=== PATIENT | female | born 1975 | race Caucasian/White ===

== ENCOUNTER 2021-06-20 01:46 | Emergency (ER) | payer SELFPAY ==
[2021-06-20] VITALS (24 sets, daily range): BP systolic 116–147; BP diastolic 79–105; PULSE 81–99; RESP 17–20; TEMP 36.5–36.6; O2SAT 97–100
--- NOTE | ~2021-06-20 | US_ITS ---
EXAMINATION: US OB <=14 wk fetus w TV DATE: 06/20/2021 04:34 INDICATION: Vaginal bleeding. Pelvic pain. TECHNIQUE: Real-time transabdominal and transvaginal pelvic ultrasound was performed. COMPARISON: CT abdomen and pelvis 12/14/2016 FINDINGS: TRANSABDOMINAL ULTRASOUND: The uterus measures 12.1 x 5.3 x 5.1 cm. TRANSVAGINAL ULTRASOUND: There is no visible intrauterine gestational sac. The endometrial complex me asures 2.0 cm in thickness. The right ovary measures 2.8 x 1.7 x 2.3 cm. The left ovary measures 3.7 x 2.6 x 2.8 cm. There is a 5.2 x 6.1 x 4.7 cm mass posterior to the uterus. There is no free fluid in the pelvis. IMPRESSION: 1. No visible intrauterine gestational sac, which may be normal in early . Ectopic pregnanc y and spontaneous are not excluded. Serial beta-hCGs are recommended. 2. 6.1 m mass posterior to the uterus. The differential diagnosis includes pedunculated fibroid, stoo l in the colon, and neoplasm. Consider pelvis MRI without contrast. Reviewed, dictated and finalized at location B. RITY INVESTIGATOR IMPRESSION: 1. No visible intrauterine gestational sac, which may be normal in early pregn alex. Ectopic and spontaneous are not excluded. Serial beta- hCGs are recommended. 2. 6.1 m mass posterior to the uterus. The differential diagnosis includes pedu nculated fibroid, stool in the colon, and neoplasm. Consider pelvis MRI without contrast.
--- NOTE | 2021-06-20 01:59 | PC.NURSE ---
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
[2021-06-20 02:34] LABS: Add Urine Microscopic? YES; Appearance Urine Cloudy (Clear); Bacteria Urine 2+ /hpf; Bilirubin Urine Negative (Negative); Blood Urine 3+ (Negative); Color Urine Yellow (Yellow); Glucose Urine UA Negative (Negative); Ketones Urine Negative (Negative); Leukocyte Esterase Ur 1+ LEU/UL (Negative); Mucus Urine Few /lpf; Nitrate Urine Positive (Negative); Protein Urine Negative (Negative); RBC Urine >75 /hpf (0-2); Specific Grav Ur 1.015 (1.001-1.035); Squamous Epithelial Cell Urine Few /hpf (Few); Urobilinogen Urine Negative mg/dL (<2.0); WBC Urine 21-30 /hpf
[2021-06-20 02:37] LABS: Basophils Absolute Auto 0.1 K/mm3 (0.0-0.1); Basophils Percent Auto 0.7 % (0.2-1.2); Eosinophils Absolute Auto 0.8 K/mm3 (0-0.3); Eosinophils Percent Auto 9.1 % (0-4.4); Hemoglobin 8.5 g/dL (12.0-15.0); Immature Granulocyte Absolute 0.01 K/mm3 (0.00-0.031); Immature Granulocyte Percent A 0.1 % (0-0.5); Lymphocytes Absolute Auto 1.76 K/mm3 (0.9-3.2); Lymphocytes Percent Auto 21.2 % (18.3-44.2); Mean Corpuscular HGB Conc 29.3 g/dl (32-36); Mean Corpuscular Hemoglobin 21.9 pg (26-34); Mean Corpuscular Volume 74.6 fl (80-100); Monocytes Absolute Auto 0.6 K/mm3 (0.1-0.6); Monocytes Percent Auto 6.7 % (2.6-8.5); Neutrophils Absolute Auto 5.2 K/mm3 (1.3-6.7); Neutrophils Percent Auto 62.2 % (45.5-73.1); Platelet Count Result 572 k/mm3 (150-375); Red Blood Count 3.89 M/mm3 (4.2-5.4); Red Cell Distribution Width 16.8 % (11.5-14.5); White Blood Count 8.3 K/mm3 (4.5-10.0)
[2021-06-20] MEDS: MORPHINE SULFATE (*CRX) 4 MG/ML INJ IV PUSH ×2 (02:46→03:39)
[2021-06-20 02:47] LABS: Anion Gap 3 mmol/L (8-16); Blood Urea Nitrogen 15 mg/dL (7-17); Calcium 9.1 mg/dL (8.4-10.2); Carbon Dioxide 23 mmol/L (22-30); Chloride 106 mmol/L (98-107); Estimated CRCL calculation 76 ml/min; Estimated Glomerular Filt Rate > 60; Glucose 98 mg/dL (65-110); Potassium 3.9 mmol/L (3.4-5.0); Sodium 132 mmol/L (137-145)
[2021-06-20 02:59] LABS: Hypochromasia 2+ (NORMAL); Platelet Estimate Increased (Adequate)
[2021-06-20 03:00] LABS: Stomatocytes 1+ (NORMAL)
[2021-06-20 03:10] LABS: Beta HCG Quantitative 20.28 mIU/ML
--- NOTE | 2021-06-20 04:06 | PC.NURSE ---
Patient taken to US via w/c.
--- NOTE | 2021-06-20 06:02 | ED.FEMALEGU ---
HPI - Female Genitourinary General Chief complaint: Vaginal Bleeding Stated complaint: vaginal bleed/hemorrhage - pass large clots-pd Time Seen by Provider: 06/20/21 01:52 History of Present Illness HPI Narrative: Patient is a 45-year-old female who presents ER with vaginal bleeding. She reports has been intermittent over the last 6 months however today while being in custody with [facility] she developed sudden gushing of blood from her vagina. Associate with lower abdominal cramping and pain. She denies any vaginal discharge. No urinary frequency urgency or dysuria. She is unsure if she has retained foreign body within her vagina but does not think she is placed anything in her recently. She reports that she is sexually active but has not been diagnosed as being . Related Data Home Medications Medication Instructions Recorded Confirmed No Home Medications 06/20/21 Allergies Allergy/AdvReac Type Severity Reaction Status Date / Time No Known Allergies Allergy Verified 06/20/21 02:05 Review of Systems Review of Systems: All systems reviewed & are unremarkable except as noted in HPI and below Constitutional: Constitutional: Denies chills and Denies fatigue ENT: Denies nasal congestion and Denies sore throat Cardiovascular: Cardiovascular: Denies chest pain, Denies rapid heart rate and Denies radiating jaw, neck or arm pain Respiratory: Respiratory: Denies cough and Denies dyspnea Gastrointestinal: Gastrointestinal: Reports abdominal pain, Denies nausea and Denies vomiting Genitourinary: Genitourinary: Reports abnormal vaginal bleeding, Denies dysuria, Denies flank pain and Denies vaginal discharge PMFSH Past Medical History Medical History (Updated 06/20/21 @ 07:54 by Nikunj Hidalgo MD) Depression Surgical History Surgical History (Updated 06/20/21 @ 06:05 by Nikunj Hidalgo MD) History of elective History of nasal surgery Social History Social History (Updated 06/20/21 @ 06:05 by Nikunj Hidalgo MD) Smoking status: Current every day smoker Exam Narrative: GENERAL: Uncomfortable-appearing, well-nourished, and in no acute distress. HEAD: Normocephalic, atraumatic. ENT: Mucous membranes moist. CHEST: Clear to auscultation. No respiratory distress. HEART: Regular rate and rhythm. Normal peripheral pulses. ABDOMEN: Soft, tender palpation lower abdomen bilateral lower quadrants more pelvic region than abdomen, nondistended, normal active bowel sounds. : Normal feeling external genitalia. Speculum exam with abnormal appearance to the cervix which is friable and there is some bleeding from the os. Bimanual exam reveals a irregular and large cervix. No discharge. EXTREMITIES: Normal range of motion. No edema. SKIN: Warm, dry, no rash. NEURO: Alert and oriented x3. PSYCH: Normal mood and affect. Course Course Emergency Course: Patient informed of results. Discussed case with Dr. Chaney. She suspects patient is not and that she may have an abnormal beta-hCG related to a cancerous process given the ultrasound. She would like patient follow-up in her clinic. We will add on an AFP, CA-125, and CEA test for further evaluation. Patient is well aware that she may have malignancy and I have stressed the importance of follow-up. Vital Signs Vital signs: Vital Signs Temperature 97.8 F 06/20/21 01:49 Pulse Rate 94 06/20/21 01:49 Respiratory Rate 18 06/20/21 01:49 Blood Pressure 147/105 H 06/20/21 01:49 Pulse Oximetry 100 06/20/21 01:49 Temperature 97.7 F 06/20/21 06:31 Pulse Rate 81 06/20/21 06:31 Respiratory Rate 17 06/20/21 06:31 Blood Pressure 125/86 06/20/21 06:30 Pulse Oximetry 99 06/20/21 06:31 MDM - Female Genitourinary Lab Data Result diagrams: 06/20/21 02:29 06/20/21 02:29 Labs: Lab Results 06/20/21 06/20/21 06/20/21 Range/Units 02:12 02:29 02:29 WBC 8.3 (4.5-10
== END 2021-06-20 08:41 | disposition home or self-care (01) ==
PROVIDERS: Emergency Provider Emergency Medicine
DX: N88.8 Other specified noninflammatory disorders of cervix uteri (principal); F17.200 Nicotine dependence, unspecified, uncomplicated
CPT/HCPCS: 36415; 76801; 76817; 80048; 81001; 81025; 84702; 85025; 86850; 86900; 86901; 87077; 87086; 87088; 87186; 96374; 96376; 99284; J2270

== ENCOUNTER 2022-02-27 09:01 | Emergency (ER) | payer SELFPAY ==
[2022-02-27 09:12] VITALS: BP 158/112; PULSE 109; RESP 18; TEMP 36.5; O2SAT 100
--- NOTE | 2022-02-27 09:37 | ED.GENADULT ---
HPI - General Adult General Chief complaint: Abdominal Pain Stated complaint: abd pain, painful urination Time Seen by Provider: 02/27/22 09:02 Source: RN notes reviewed History of Present Illness HPI narrative: Patient presents emergency department from home for abdominal pain. Patient states pain began approximately 3 days ago pain is located bilateral lower quadrant does not radiate described as sharp and stabbing it is associated with dysuria as well as nausea and vomiting. Patient denies any fevers or chills chest pain shortness of breath or diarrhea patient states she has been taking Tylenol ibuprofen at home with minimal relief Related Data Home Medications Medication Instructions Recorded Confirmed No Home Medications 06/20/21 Allergies Allergy/AdvReac Type Severity Reaction Status Date / Time No Known Allergies Allergy Verified 06/20/21 02:05 Review of Systems Review of Systems: Gen.: Denies fevers or chills ENT: Denies congestion Respiratory: Denies shortness of breath or cough CV: Denies chest pain or palpitations GI: See HPI see HPI Musculoskeletal: Denies back pain or muscle pain Neuro: Denies numbness, tingling, weakness or focal weakness Skin: Denies rash Except as documented, all other systems reviewed and negative [facility] Past Medical History Medical History Depression Surgical History Surgical History (Updated 06/20/21 @ 06:05 by Nikunj Hidalgo MD) History of elective History of nasal surgery Social History Social History Smoking status: Current every day smoker Exam Narrative: APPEARANCE: No acute distress, nontoxic, resting in bed HEENT: Normocephalic, atraumatic, OMM RESPIRATORY: No respiratory distress, clear to auscultation bilaterally with no rhonchi wheezing or rales CARDIOVASCULAR: RRR s murmur ABDOMINAL: Soft nondistended tender palpation right lower quadrant and left lower quadrant no tenderness right upper quadrant left upper quadrant no rebound or guarding MUSCULOSKELETAl: Moves all extremities. No clubbing, cyanosis or edema. NEURO: Awake and alert. Following commands, speech normal, no focal deficits SKIN:: Warm, dry. Normal Color PSYCHIATRIC: Normal affect/mood Course Course Emergency Course: Reviewed patient's old records the patient has a history of being seen in May 2021. At that time she is found to have a pelvic mass was thought to be possibly cervical cancer her beta-hCG was elevated at that time as well and PUNCH OPERATOR had felt that this was likely related to her cancer she had been referred at that time Per nursing staff they want to start the IV on the patient patient became upset with IV placement and eloped from the facility I was unable to see the patient before she eloped with the patient having a UTI and with her previous history I attempted to call the patient and called the number that was on the patient's records and that phone number has been discontinued. This time no other way to contact the patient Vital Signs Vital signs: Vital Signs Temperature 97.7 F 02/27/22 09:12 Pulse Rate 109 H 02/27/22 09:12 Respiratory Rate 18 02/27/22 09:12 Blood Pressure 158/112 H 02/27/22 09:12 Pulse Oximetry 100 02/27/22 09:12 Temperature 97.7 F 02/27/22 09:12 Pulse Rate 109 H 02/27/22 09:12 Respiratory Rate 18 02/27/22 09:12 Blood Pressure 158/112 H 02/27/22 09:12 Pulse Oximetry 100 02/27/22 09:12 Medical Decision Making Vital Signs Vital Signs: Vital Signs Temperature 97.7 F 02/27/22 09:12 Pulse Rate 109 H 02/27/22 09:12 Respiratory Rate 18 02/27/22 09:12 Blood Pressure 158/112 H 02/27/22 09:12 Pulse Oximetry 100 02/27/22 09:12 Temperature 97.7 F 02/27/22 09:12 Pulse Rate 109 H 02/27/22 09:12 Respiratory Rate 18 02/27/22 09:12 Blood Pressure 158/112 H
[2022-02-27 10:16] LABS: Alanine Aminotransferase 13 U/L (6-35); Albumin Level 3.8 g/dL (3.5-5.1); Alkaline Phosphatase 135 U/L (38-126); Anion Gap 16 mmol/L (8-16); Aspartate Amino Transferase 18 U/L (14-36); Bilirubin,Total 0.1 mg/dL (0.2-1.3); Blood Urea Nitrogen 17 mg/dL (7-17); Calcium 9.4 mg/dL (8.4-10.2); Carbon Dioxide 25 mmol/L (22-30); Chloride 99 mmol/L (98-107); Estimated Glomerular Filt Rate 48; Glucose 92 mg/dL (65-110); Lipase 172 U/L (23-300); Potassium 4.2 mmol/L (3.4-5.0); Sodium 140 mmol/L (137-145)
[2022-02-27 10:21] LABS: Appearance Urine Cloudy (Clear); Bilirubin Urine Negative (Negative); Blood Urine 2+ (Negative); Color Urine Yellow (Yellow); Glucose Urine UA Negative (Negative); Ketones Urine Negative (Negative); Leukocyte Esterase Ur 3+ LEU/UL (Negative); Nitrate Urine Positive (Negative); Protein Urine 3+ mg/dL (Negative); Specific Grav Ur 1.025 (1.001-1.035); Urobilinogen Urine 0.2 mg/dL (<2.0)
--- NOTE | 2022-02-27 10:30 | PC.NURSE ---
Pt screaming at this rn I dont want to fucking be here, I got woke up out of a sleep. I am in fucking pain and i am leaving. This rn attempted to calm patient and offer to start and iv to get her medication. Pt refused and proceeded to get dressed and storm out of er at this time.
--- NOTE | 2022-02-27 10:33 | PC.NURSE ---
attempted to contact pt via phone to discuss results and pt phone number did not work.
--- NOTE | 2022-02-27 10:33 | PC.NURSE ---
Pt stated she did not want to come here and her boyfriend brought her here while she was asleep . She stated he did this so he could just leave her here. The boyfriend left the room and return to the room.
[2022-02-27 10:43] LABS: Add Urine Microscopic? YES
[2022-02-27 10:44] LABS: WBC Clumps Urine Present /hpf; WBC Urine >75 /hpf (0-3)
[2022-02-27 10:45] LABS: Bacteria Urine 2+ /hpf; Squamous Epithelial Cell Urine Occasional /hpf (Few)
[2022-02-27 10:54] LABS: Basophils Absolute Auto 0.1 K/mm3 (0.0-0.1); Basophils Percent Auto 0.6 % (0.2-1.2); Eosinophils Absolute Auto 1.4 K/mm3 (0-0.3); Eosinophils Percent Auto 10.4 % (0-4.4); Hematocrit 24.4 % (37.0-47.0); Immature Granulocyte Absolute 0.05 K/mm3 (0.00-0.031); Immature Granulocyte Percent A 0.4 % (0-0.5); Lymphocytes Percent Auto 14.1 % (18.3-44.2); Mean Corpuscular HGB Conc 27.9 g/dl (32-36); Mean Corpuscular Hemoglobin 20.2 pg (26-34); Mean Corpuscular Volume 72.6 fl (80-100); Mean Platelet Volume 8.3 fl (7.4-10.4); Monocytes Absolute Auto 0.7 K/mm3 (0.1-0.6); Neutrophils Absolute Auto 9.4 K/mm3 (1.3-6.7); Neutrophils Percent Auto 69.5 % (45.5-73.1); Platelet Count Result 955 k/mm3 (150-375); Red Blood Count 3.36 M/mm3 (4.2-5.4); Red Cell Distribution Width 18.4 % (11.5-14.5); White Blood Count 13.5 K/mm3 (4.5-10.0)
[2022-02-27 11:03] LABS: Hemoglobin 6.8 g/dL (12.0-15.0)
--- NOTE | 2022-02-27 11:05 | PC.NURSE ---
critical hgb 6.8 called by lab at this time. unable to notify pt.
== END 2022-02-27 10:38 | disposition left against medical advice (07) ==
PROVIDERS: Emergency Provider Emergency Medicine
DX: N39.0 Urinary tract infection, site not specified (principal); D64.9 Anemia, unspecified; R10.32 Left lower quadrant pain; R10.31 Right lower quadrant pain; F17.200 Nicotine dependence, unspecified, uncomplicated
CPT/HCPCS: 36415; 80053; 81001; 81025; 83690; 85025; 87077; 87086; 87088; 87186; 99283

== ENCOUNTER 2022-11-16 17:30 | HOS | payer OTHER, MEDICAID, SELFPAY ==
[2022-11-16 17:15] VITALS: BP 100/68; PULSE 88; RESP 12; TEMP 36.6; O2SAT 97
[2022-11-16] MEDS: HYDROmorphone HCL INJ (*CRX) 1 MG/ML SYR 2 MG IV PUSH (17:50)
[2022-11-16 18:10] VITALS: PULSE 88; RESP 12
[2022-11-16] MEDS: HYDROmorphone HCL/PF (*CRX) 50 MG in SODIUM CHLORIDE 0.9% IV 95 ML IV CONT (18:10)
[2022-11-16] MEDS: diazePAM INJ (*CRX) 10 MG/2 ML SYRINGE 5 MG IV PUSH (18:12)
--- NOTE | 2022-11-16 19:41 | ADMGEN ---
This patient, Yamilex Fischer, was admitted to [facility] Surg Room 318-01 at 1715. Patient/family oriented to hospital policies and general routines including ID bracelet, bed and alarms, visiting hours, pain management, procedures, bathroom and other care routines, personal items, smoking policy, room service/diet, and visiting hours. Information on how to activate the Rapid Response Team has been discussed. Patient/Family are encouraged to report perceived risks to care and to ask questions if they do not understand what they are told or what they should do.
[2022-11-16 20:00] VITALS: BP 89/43; PULSE 83; RESP 18; TEMP 35.8; O2SAT 100
--- NOTE | 2022-11-17 07:55 | PM.IMHP ---
H&P: HPI History of Present Illness Date/Time: 11/17/22 07:55 Chief Complaint: uncontrolled pain Narrative: 47 y/o f with cervical cancer metastatic to pelvis and bone was on hospice at home for the past several weeks. She was taking her medication sporadically, but on average was taking approximately 480 MME per day. She would take all of her medications then not be available at home for a few days. She has a hx of OUD as well as meth use. Over the past couple of days, her urine was darker and more foul smelling. The day prior to admission she received one dose of Cipro. She was not eating or drinking, was more lethargic, and unable to get out of bed on her own. PPS was 30. She was having uncontrolled, deep, aching, severe, generalized pain, mainly in chest and RLE. Pain worsened by movement and breathing. Better with rest. She was nauseated but not vomiting. She denied fever, gi/gu issues otherwise. No sob. No abd pain. NO numbness. Generalized weakness. Review of Systems Review of Systems: All systems reviewed & are unremarkable except as noted in HPI and below PMFSH Past Medical History Medical History (Updated 11/17/22 @ 07:56 by Vincent Sutton MD) Depression Substance use disorder Surgical History Surgical History History of elective History of nasal surgery Family History Family History (Updated 11/17/22 @ 10:38 by Vincent Sutton MD) Father No problems noted. Mother No problems noted. Sibling No problems noted. Social History Social History (Updated 11/17/22 @ 10:39 by Vincent Sutton MD) Social History: Lives with sister. Smoking status: Current every day smoker Substance use: current Lack of Transportation: No Lack of Food: Never True Current Housing: I Have Housing Concerned About Future Housing: No Difficulty Paying for Meds: No Living arrangements: with family Meds Home Medications and Allergies Home Medications Medication Instructions Recorded Confirmed Type No Home Medications 06/20/21 History Allergies Allergy/AdvReac Type Severity Reaction Status Date / Time No Known Allergies Allergy Verified 11/16/22 17:46 Vital Signs Vital Signs - 24 hr 11/16/22 17:15 11/16/22 18:10 11/16/22 18:46 Temperature 97.8 F Pulse Rate 88 88 Respiratory Rate 12 12 Blood Pressure 100/68 Pulse Oximetry 97 Oxygen Delivery Room Air 11/16/22 20:00 11/16/22 20:00 Temperature 96.5 F L Pulse Rate 83 Respiratory Rate 18 Blood Pressure 89/43 L Pulse Oximetry 100 Oxygen Delivery Room Air Exam Narrative: HEENT: PERRL, sclerae nonicteric, pharyngeal mucosa pink and intact NECK: No JVD, adenopathy, or thyromegaly CHEST: Clear to auscultation. Normal effort. HEART: NL S1/S2, regular, no murmur ABDOMEN: BS+, soft, nontender, no mass, no bruits EXTREMITIES: No cyanosis, edema, or clubbing NEUROLOGIC: CN intact and symmetric to inspection. MUSCULOSKELETAL: No deformity to visual inspection, TENDER TO LIGHT TOUCH OVER LEFT ANTERIOR LEG PSYCH: Alert. Oriented to person, place, and time (year & month, not day). Assessment and Plan Assessment and plan (1) Palliative care encounter: Code(s): Z51.5 - Encounter for palliative care Status: Acute Assessment and Plan: Meets inpatient hospice criteria due to requiring continuous IV hydromorphone for analgesia 11/17/22 Increased hydromorphone from 1.5 mg/hr to 2 mg/hr, added Dexamethasone for bone pain (2) Cervical cancer, FIGO stage IVB: Code(s): C53.9 - Malignant neoplasm of cervix uteri, unspecified Status: Acute (3) Substance use disorder: Code(s): F19.90 - Other psychoactive substance use, unspecified, uncomplicated Status: Acute
[2022-11-17 08:00] VITALS: BP 94/58; PULSE 123; RESP 18; TEMP 37.3; O2SAT 96
[2022-11-17] MEDS: DEXAMETHASONE SOD PHOS INJ 4 MG/ML VIAL IV PUSH (08:55)
--- NOTE | 2022-11-17 10:02 | PC.NURSE ---
Pt's sister, Agnes, called wanting an update. I answered her questions. Agnes stated she was coming to visit in person.
[2022-11-17] MEDS: HYDROmorphone HCL INJ (*CRX) 1 MG/ML SYR 3 MG SUB-Q (19:52)
[2022-11-17 20:00] VITALS: BP 90/66; PULSE 82; RESP 20; TEMP 36.6; O2SAT 98
[2022-11-17] MEDS: CEFDINIR 300 MG CAPSULE PO (21:03)
[2022-11-17] MEDS: methADONE HCL (*CRX) 5 MG TABLET 25 MG PO (21:03)
[2022-11-18] MEDS: methADONE HCL (*CRX) 5 MG TABLET 25 MG PO (06:10)
[2022-11-18 08:00] VITALS: BP 92/68; PULSE 79; RESP 20; TEMP 36.3; O2SAT 98
[2022-11-18] MEDS: LORazepam (*CRX) 1 MG TABLET PO (08:13)
[2022-11-18] MEDS: DEXAMETHASONE 4 MG TABLET PO (08:13)
[2022-11-18] MEDS: CEFDINIR 300 MG CAPSULE PO (08:13)
--- NOTE | 2022-11-18 09:19 | PC.NURSE ---
Pt was alert and oriented x4 this morning. Pt's responses were appropriate and there were not any signs or symptoms of delusions, hallucinations, depression, or agitation. Pt was upbeat, concrete finisher apprentice, and exhibiting no sign or symptom of any type of pain. Pt had no complaints of pain when asked and responded, I just want everything just in case. The night nurse stated that pt's behavior and pain control was the same as the aforementioned. Viet made aware of all of this.
--- NOTE | 2022-11-18 10:09 | PM.DS ---
DS: Admitting Diagnosis Discharge Date 11/18/2022 Admitting Diagnosis uncontrolled pain due to metastatic cervical cancer DS: Discharge Diagnosis Discharge Diagnosis (1) Palliative care encounter: Code(s): Z51.5 - Encounter for palliative care Status: Acute Assessment and Plan: Meets inpatient hospice criteria due to requiring continuous IV hydromorphone for analgesia 11/17/22 Increased hydromorphone from 1.5 mg/hr to 2 mg/hr, added Dexamethasone for bone pain 11/18/22 Pain adequately controlled after transition to PO methadone 25mg q 8h 11/18 PM. Patient ambulatory. Tolerating diet. Patient and sister agreeable to discharge to home (2) Cervical cancer, FIGO stage IVB: Code(s): C53.9 - Malignant neoplasm of cervix uteri, unspecified Status: Acute (3) Substance use disorder: Code(s): F19.90 - Other psychoactive substance use, unspecified, uncomplicated Status: Acute Assessment and Plan: Admits to snorting fentanyl and meth every few days prior to admission to hospice (4) Mood disorder: Code(s): F39 - Unspecified mood [affective] disorder Status: Acute Assessment and Plan: admits to episodes of sleeplessness and energy lasting a few days followed by sleeping for hours at a time associated with mood swings and irritability also admits to auditory hallucinations and feeling that her family is trying to sabotage her because of methadone use need to avoid other QT prolonging drugs (5) Urinary obstruction: Code(s): N13.9 - Obstructive and reflux uropathy, unspecified Status: Acute Assessment and Plan: due to metastatic cervical cancer urostomy tubes in place (6) UTI (urinary tract infection), bacterial: Code(s): N39.0 - Urinary tract infection, site not specified; A49.9 - Bacterial infection, unspecified Status: Acute Assessment and Plan: complete 10 days of cefdinir avoid Cipro or Levaquin due to QT prolongation DS: Summary Hospital Course Reason for hospitalization: uncontrolled pain due to metastatic cervical cancer Hospital Course: 47-year-old female with metastatic cervical cancer and nephrostomy tubes due to obstructive uropathy was taking home medications somewhat erratically and not available for hospice is on a regular basis. She was thought to have urinary tract infection and took 1 dose of Cipro the night prior to admission on November 16. She was becoming more lethargic and having difficulty swallowing and therefore pain was not well controlled. At home she was taking MS Contin 60 mg every 8 hours and Oxy IR 20 mg as needed. Upon admission, she was started on hydromorphone drip at 1.5 milligrams/hour with boluses every 2 hours as needed. Due to the possible urinary tract infection she was treated with ceftriaxone 1 g IV every 24 hours. The following day the drip was increased to 2 milligrams/hour with better pain control. Afternoon she lost her IV access and was transition to p.o. methadone 25 mg every 8 hours with p.r.n. subcutaneous hydromorphone 3 mg every 3 hours as needed. She did require a p.r.n. dose overnight. However she was up and about ambulatory and tolerating her on the day of discharge. She showed no signs of distress even though she rated a 10/10 she stead prior to admission it was much higher. She had no moaning fidgeting grimacing or antalgic behaviors with movement. Medication regimen was reviewed with her. Hospice nurse review the medication regimen and need for oversight with the patient's sister. The patient's sister will help with dosing and there will be a visit by hospice nurse today at their home post discharge to again review medications and dosing. Time Spent with Patient Time attestation: Total time spent providing and/or coordinating discharge services: Exam Narrative: HEENT: PERRL, sclerae nonicteric, pharyngeal mucosa pink and intact NECK: No JVD, adenopathy, or thy
--- NOTE | 2022-11-18 13:22 | PC.NURSE ---
Pt's discharge has been completed. Pt's ride was to be provided by her sister, Agnes, with whom she lives. Agnes asked for pt to be ready and downstairs for pick out hand at 1300. Pt refuses to leave the room until she has a cheeseburger.
== END 2022-11-18 13:48 | disposition hospice, home (50) | DRG 951 ==
PROVIDERS: Admitting Provider Internal Medicine; Visit Provider Internal Medicine
DX: Z51.5 Encounter for palliative care (principal); C79.51 Secondary malignant neoplasm of bone; N39.0 Urinary tract infection, site not specified; C53.9 Malignant neoplasm of cervix uteri, unspecified; N13.9 Obstructive and reflux uropathy, unspecified; F32.A Depression, unspecified; F19.90 Other psychoactive substance use, unspecified, uncomplicated; Z93.6 Other artificial openings of urinary tract status
CPT/HCPCS: A9270; J0696; J1100; J1170; J3360; J8540

== ENCOUNTER 2023-01-10 17:12 | Emergency (ER) | payer OTHER, SELFPAY ==
--- NOTE | ~2023-01-10 | XR_ITS ---
EXAM: XR knee RT 3V DATE: 01/10/2023 18:41 HISTORY: fall, metastatic cancer . COMPARISON: None available. FINDINGS: Normal mineralization. No fracture or dislocation. No lytic or blastic lesion. Mild osteoa rthritis. No erosion or periosteal change. Soft tissues within normal limits. IMPRESSION: No acute osseous finding in the right knee. Reviewed, dictated and finalized at location K.
[2023-01-10 17:12] VITALS: BP 127/97; PULSE 81; RESP 19; TEMP 37.4; O2SAT 100
[2023-01-10 18:00] VITALS: BP 112/58; PULSE 64; RESP 16; O2SAT 98
--- NOTE | 2023-01-10 18:19 | ED.FEMALEGU ---
HPI - Female Genitourinary General Chief complaint: Urogenital-Female Stated complaint: urostomy tube infected Time Seen by Provider: 01/10/23 17:35 History of Present Illness HPI Narrative: Patient is a 47-year-old female presenting with several complaints. Patient states that she has metastatic cervical cancer and has been on hospice. States that hospice has not been giving her enough pain medications so she is decided to stop hospice and try radiation therapy. States that she is supposed to follow-up with rad onc at [place]. Today she had a fall and her right knee hurts. She is also concerned that her bilateral urostomy tubes are leaking. She has not seen her urologist for many months. States that the main reason she is here today is because of her right knee pain. No numbness or weakness, vomiting, diarrhea, chest pain, shortness of breath. Related Data Allergies Allergy/AdvReac Type Severity Reaction Status Date / Time No Known Allergies Allergy Verified 11/16/22 17:46 Review of Systems Review of Systems: All systems reviewed & are unremarkable except as noted in HPI and below PMFSH Past Medical History Medical History Depression Substance use disorder Surgical History Surgical History History of elective History of nasal surgery Family History Family History Father No problems noted. Mother No problems noted. Sibling No problems noted. Social History Social History Social History: Lives with sister. Smoking status: Current every day smoker Substance use: current Lack of Transportation: No Lack of Food: Never True Current Housing: I Have Housing Concerned About Future Housing: No Difficulty Paying for Meds: No Living arrangements: with family Exam Narrative: GENERAL: Frail, cachectic, chronically ill-appearing female laying in bed in no acute distress HEAD: Normocephalic, atraumatic. EYES: PERRLA and EOMI. ENT: Mucous membranes moist. NECK: Supple. CHEST: No respiratory distress. HEART: Regular rate and rhythm ABDOMEN: Soft, nontender, nondistended, patient with bilateral urostomy tubes with no evidence of surrounding cellulitis, no purulence, no leakage appreciated EXTREMITIES: Normal range of motion. Diffuse tenderness of right knee, no erythema or ecchymoses SKIN: Warm, dry, no rash. NEURO: No focal deficits. Alert and oriented x3. PSYCH: Normal mood and affect. Course Vital Signs Vital signs: Vital Signs Temperature 99.3 F 01/10/23 17:12 Pulse Rate 81 01/10/23 17:12 Respiratory Rate 19 01/10/23 17:12 Blood Pressure 127/97 H 01/10/23 17:12 Pulse Oximetry 100 01/10/23 17:12 Oxygen Delivery Room Air 01/10/23 17:12 Temperature 97.2 F L 01/10/23 20:19 Pulse Rate 69 01/10/23 20:19 Respiratory Rate 17 01/10/23 20:19 Blood Pressure 115/83 01/10/23 20:19 Pulse Oximetry 99 01/10/23 20:19 Oxygen Delivery Room Air 01/10/23 17:12 MDM - Female Genitourinary MDM Narrative Medical decision making narrative: Patient is a 47-year-old female presenting with right knee pain and urostomy tube check. Vitals within normal limits. Exam remarkable for the above. Her urostomy tubes have rather dirty bandages over them but they otherwise look unremarkable. I do not appreciate any purulence or other drainage. There is no surrounding cellulitis. New bandages were applied and I advised that she follow-up closely with her urologist. X-ray of the right knee shows no acute osseous abnormalities. Feel the patient is safe for outpatient management. States that she has been on hospice but she is going to call radiation oncology today for possible follow-up. States that hospice has not been giving
[2023-01-10] MEDS: oxyCODONE HCL (*CRX) 5 MG TAB IR 10 MG PO (18:27)
[2023-01-10] MEDS: CEPHALEXIN 500 MG CAPSULE PO (18:27)
[2023-01-10 20:19] VITALS: BP 115/83; PULSE 69; RESP 17; TEMP 36.2; O2SAT 99
== END 2023-01-10 20:15 | disposition home or self-care (01) ==
PROVIDERS: Emergency Provider Emergency Medicine
DX: S89.91XA Unspecified injury of right lower leg, initial encounter (principal); G89.3 Neoplasm related pain (acute) (chronic); C53.9 Malignant neoplasm of cervix uteri, unspecified; C79.51 Secondary malignant neoplasm of bone; F32.A Depression, unspecified; F17.200 Nicotine dependence, unspecified, uncomplicated; Z93.6 Other artificial openings of urinary tract status; W19.XXXA Unspecified fall, initial encounter
CPT/HCPCS: 73562; 99283; A9270